=== PATIENT | female | born 1950 | race Caucasian/White ===

== ENCOUNTER → 2018-05-11 | Outpatient (CLI) | payer MEDICARE | LOC: MC.RAD 14:11 | DX: Z12.31 Encounter for screening mammogram for malignant neoplasm of breast (principal) ==

== ENCOUNTER → 2018-05-17 | Outpatient (CLI) | payer MEDICARE | LOC: MC.RAD 14:30 | DX: Z12.31 Encounter for screening mammogram for malignant neoplasm of breast (principal) ==

== ENCOUNTER → 2018-06-12 | Outpatient (CLI) | payer MEDICARE | LOC: COL.RAD 13:06 | DX: M51.16 Intervertebral disc disorders with radiculopathy, lumbar region (principal); M48.061 Spinal stenosis, lumbar region without neurogenic claudication; M89.9 Disorder of bone, unspecified ==

== ENCOUNTER 2019-03-14 19:07 | Emergency (ER) | payer MEDICARE ==
[2019-03-14 19:12] VITALS: TEMP 98.8
[2019-03-14 19:43] LABS: BASO # 0.1 (0.0-0.2); BASO % 0.5 % (0.0-2.0); EOS # 0.1 (0.0-0.7); GRAN % 57.3 % (42.2-75.2); HEMATOCRIT 43.5 % (37.0-47.0); HEMOGLOBIN 14.6 g/dl (12.5-16.0); LYMPH # 3.4 (1.2-3.4); LYMPH % 32.7 % (20.0-51.0); MEAN CELL VOLUME 92 fl (80.0-100.0); MEAN CORPUSCULAR HEMOGLOBIN 31 pg (27.0-31.0); MEAN CORPUSCULAR HGB CONC 34 g/dl (33.0-37.0); MEAN PLATELET VOLUME 9.8 fl (7.4-10.4); MONO # 0.9 (0.1-0.6); MONO % 8.3 % (1.7-9.3); PLATELET COUNT 316 K/mm3 (130-400); RED BLOOD COUNT 4.71 M/mm3 (4.10-5.30); REDCELL DISTRIBUTION WIDTH-CV 12.5 % (11.5-14.5)
[2019-03-14 19:56] LABS: ALANINE AMINOTRANSFERASE 21 U/L (9-52); ALBUMIN 4.5 gm/dL (3.5-5.0); ALKALINE PHOSPHATASE 103 U/L (50-136); ANION GAP 10 mmol/L (7-16); AST,SGOT 22 U/L (15-37); BILIRUBIN,TOTAL 0.2 mg/dL (0.0-1.0); BLOOD UREA NITROGEN 16 mg/dL (7-17); CALCIUM 10.1 mg/dL (8.4-10.2); CARBON DIOXIDE 24 mmol/L (22-30); CHLORIDE 106 mmol/L (98-107); CREATININE, serum 0.64 (0.52-1.25); GLUCOSE 102 mg/dL (74-106); POTASSIUM 3.7 mmol/L (3.4-5.0); SODIUM 141 mmol/L (137-145); TOTAL PROTEIN 7.8 gm/dL (6.4-8.2)
[2019-03-14 20:08] LABS: TROPONIN-I < 0.012 ng/mL (0.000-0.035)
[2019-03-14 20:45] LABS: PH 8 (5-8); SQUAMOUS EPITHELIAL 0-2 /hpf; URINE APPEARANCE Clear; URINE BACTERIA None Seen /hpf; URINE BILIRUBIN Negative (NEGATIVE); URINE BLOOD Negative (NEGATIVE); URINE COLOR Straw; URINE GLUCOSE Negative (NEGATIVE); URINE KETONE Negative (NEGATIVE); URINE LEUKOCYTE ESTERASE Negative (NEGATIVE); URINE NITRATE Negative (NEGATIVE); URINE PROTEIN(semi-quant) Negative (NEGATIVE); URINE RBC None Seen /hpf; URINE UROBILINOGEN Negative (NEGATIVE); URINE WBC 0-2 /hpf
[2019-03-14 20:53] LABS: COLLECTION METHOD CLEAN CATCH
[2019-03-14] MEDS ORDERED: TOPROL XL 50MG50 MG PO (22:25)
[2019-03-14 22:30] VITALS: BP 145/77; PULSE 75
== END 2019-03-14 22:33 | disposition home or self-care (01) ==
LOC: COL.ER 19:07
PROVIDERS: Emergency Medicine
DX: R00.2 Palpitations (principal); I10 Essential (primary) hypertension; K21.9 Gastro-esophageal reflux disease without esophagitis; E03.9 Hypothyroidism, unspecified; E78.5 Hyperlipidemia, unspecified

== ENCOUNTER → 2019-05-21 | Outpatient (CLI) | payer MEDICARE ==
[~2019-05-21] MED LIST: TOPROL XL 50MG50 MG PO
== END ==
LOC: MC.RAD 13:11
DX: Z12.31 Encounter for screening mammogram for malignant neoplasm of breast (principal)

== ENCOUNTER → 2019-10-02 | Outpatient (CLI) | payer MEDICARE | LOC: COL.RAD 13:57 | DX: E04.1 Nontoxic single thyroid nodule (principal); M48.061 Spinal stenosis, lumbar region without neurogenic claudication; M43.16 Spondylolisthesis, lumbar region; M51.16 Intervertebral disc disorders with radiculopathy, lumbar region; M47.26 Other spondylosis with radiculopathy, lumbar region; G83.4 Cauda equina syndrome ==

== ENCOUNTER 2020-02-17 10:40 | Day surgery (SDC) | payer MEDICARE ==
[~2020-02-17] VITALS: Ht 154.9 cm; Wt 70.4 kg
[2020-02-17] VITALS (12 sets, daily range): BP systolic 93–198; BP diastolic 54–92; PULSE 56–89; TEMP 97.6
[2020-02-17 11:55] LABS: HEMATOCRIT 42.5 % (37.0-47.0); HEMOGLOBIN 14.1 g/dl (12.5-16.0); MEAN CELL VOLUME 94 fl (80.0-100.0); MEAN CORPUSCULAR HEMOGLOBIN 31 pg (27.0-31.0); MEAN CORPUSCULAR HGB CONC 33 g/dl (33.0-37.0); MEAN PLATELET VOLUME 10.5 fl (7.4-10.4); PLATELET COUNT 239 K/mm3 (130-400); RED BLOOD COUNT 4.51 M/mm3 (4.10-5.30); REDCELL DISTRIBUTION WIDTH-CV 13.2 % (11.5-14.5)
[2020-02-17] MEDS ORDERED: MEVACOR 20M20 MG/TAB PO (11:58)
[2020-02-17] MEDS ORDERED: SYNTHROID0.075 MG/T PO (11:58)
[2020-02-17] MEDS ORDERED: PROTONIX20 MG PO (11:59)
[2020-02-17] MEDS ORDERED: TOPROL XL 25MG25 MG PO (11:59)
[2020-02-17] MEDS ORDERED: ZYRTEC ALLERGY10 MG PO (12:00)
[2020-02-17] MEDS ORDERED: ASPIRIN 81M81 MG/TA2 PO (12:00)
[2020-02-17] MEDS ORDERED: GLUCOSAMINE & C1 TAB PO (12:01)
[2020-02-17] MEDS ORDERED: CALCIUM 600/VIT1 CA1 PO (12:02)
[2020-02-17] MEDS ORDERED: EPA FISH OIL1 SGL PO (12:03)
[2020-02-17] MEDS ORDERED: LUTEIN20 M1 PO (12:04)
[2020-02-17] MEDS ORDERED: MAGNESIUM500 MG PO (12:04)
[2020-02-17] MEDS ORDERED: B-121000 MCG PO (12:05)
[2020-02-17] MEDS ORDERED: MASON NATURAL2000 IU PO (12:05)
[2020-02-17 12:06] LABS: PROTHROMBIN TIME 11.1 SECONDS (9.7-12.8)
[2020-02-17] MEDS ORDERED: VITAMINC1000TA PO (12:06)
[2020-02-17] MEDS ORDERED: PHARMASSURE ZIN50 MG PO (12:06)
[2020-02-17 12:08] LABS: CALCIUM 9.2 mg/dL (8.4-10.2); CREATININE, serum 0.56 (0.52-1.25); POTASSIUM 3.9 mmol/L (3.4-5.0)
[2020-02-17] MEDS ORDERED: FIBER GUMMIES2.5 GM PO (12:09)
--- NOTE | 2020-02-17 13:04 | NUR ---
SEE MERGE FOR ALL MEDICATION ADMINISTRATION TIMES, INTRA AND POST SEDATION ASSESSMENTS
--- NOTE | 2020-02-17 14:01 | NUR ---
Pt returned from procedure at this time,report from Kaela.Right radial site obsered clean,dry,intact,soft with 15ml of air in bend.Right groin site observed clean,dry,intact,soft to touch.
--- NOTE | 2020-02-17 17:36 | NUR ---
Discharge instructions given to pt.Pt verbalizes understanding.INT removed,catheter tip intact.Pt escorted out via wheelchair by this nurse.
== END 2020-02-17 18:05 ==
LOC: COL.CAR 10:40
PROVIDERS: Internal Medicine Cardiovascular Disease
DX: I25.10 Atherosclerotic heart disease of native coronary artery without angina pectoris (principal); K21.9 Gastro-esophageal reflux disease without esophagitis; E03.9 Hypothyroidism, unspecified; M19.90 Unspecified osteoarthritis, unspecified site; M81.0 Age-related osteoporosis without current pathological fracture; Z79.82 Long term (current) use of aspirin; E78.49 Other hyperlipidemia
CPT/HCPCS: J1644; J2250; J3010

== ENCOUNTER → 2020-05-21 | Outpatient (CLI) | payer MEDICARE ==
[~2020-05-21] MED LIST changes: +ASPIRIN 81M81 MG/TA2 PO; +B-121000 MCG PO; +CALCIUM 600/VIT1 CA1 PO; +EPA FISH OIL1 SGL PO; +FIBER GUMMIES2.5 GM PO; +GLUCOSAMINE & C1 TAB PO; +LUTEIN20 M1 PO; +MAGNESIUM500 MG PO; +MASON NATURAL2000 IU PO; +MEVACOR 20M20 MG/TAB PO; +PHARMASSURE ZIN50 MG PO; +PROTONIX20 MG PO; +SYNTHROID0.075 MG/T PO; +TOPROL XL 25MG25 MG PO; +VITAMINC1000TA PO; +ZYRTEC ALLERGY10 MG PO
== END ==
LOC: MC.RAD 11:26
DX: Z12.31 Encounter for screening mammogram for malignant neoplasm of breast (principal)

== ENCOUNTER → 2021-08-16 | Outpatient (CLI) | payer MEDICARE | LOC: COL.RAD 09:27 | DX: M21.372 Foot drop, left foot (principal); M48.02 Spinal stenosis, cervical region; Z98.1 Arthrodesis status ==

== ENCOUNTER → 2021-09-07 | Outpatient (CLI) | payer MEDICARE | LOC: COL.RAD 13:05 | DX: M21.372 Foot drop, left foot (principal); Z98.890 Other specified postprocedural states | CPT/HCPCS: A9575 ==

== ENCOUNTER → 2022-05-17 | Outpatient (CLI) | payer MEDICARE | LOC: COL.RAD 05-09 12:30 | DX: M50.322 Other cervical disc degeneration at C5-C6 level (principal) ==

== ENCOUNTER → 2023-06-27 | Outpatient (CLI) | payer MEDICARE | LOC: COL.RAD 07:40 | DX: M43.26 Fusion of spine, lumbar region (principal); Z98.1 Arthrodesis status ==